=== PATIENT | male | born 1975 | race Caucasian/White ===

== ENCOUNTER 2020-07-09 09:04 | Emergency (ER) | payer BC ==
[2020-07-09 09:14] VITALS: BP 162/108; PULSE 81; RESP 18; TEMP 97.7
--- NOTE | 2020-07-09 10:06 | ED ---
Skin/Abscess/FB HPI - General Chief complaint: Skin/Abscess/Foreign Body Stated complaint: Rash Time Seen by Provider: 07/09/20 09:22 Source: patient Mode of arrival: ambulatory Limitations: no limitations - History of Present Illness Initial comments: 45-year-old male presenting to the emergency department today for chief complaint of rash in the bilateral ankles for over one year. Patient states he has had an itchy rash on the ankles for 1 year. He states that the right is worse than the left. Patient states is on the inner and outer aspects on the outer worsen the inner. Patient denies any drainage follow orders he denies fevers chills general malaise or worsening redness. Patient denies any pain with ambulating, he denies any decreased sensation tingling or numbness of the lower extremities. Patient denies any penile lesions involvement of the soles of the feet or the palms of the hands. Patient denies any oral involvement. Patient denies any specific exposures in that area. Patient is no additional complaints upon arrival patient appears well nontoxic distress--patient was presenting with his son for complaint and thought he would get it checked out to - Related Data Home Medications Medication Instructions Recorded Confirmed Ranitidine HCl 150 mg PO BID 05/29/15 06/05/15 Previous Rx's Medication Instructions Recorded HYDROcodone/APAP 7.5-325MG [[place] 1 tab PO Q6HR PRN #28 tab 06/05/15 7.5-325] amLODIPine BESYLATE [Norvasc] 5 mg PO DAILY #30 tab 06/06/15 Neomyc/Bacit/Polymyx/Hydrocort 1 applic TOPICAL BID 14 Days #30 gm 07/09/20 [Cortisporin Ointment] Allergies Allergy/AdvReac Type Severity Reaction Status Date / Time Penicillins Allergy Rash/Hives Verified 07/09/20 09:14 Review of Systems ROS Statement: Those systems with pertinent positive or pertinent negative responses have been documented in the HPI. ROS Other: All systems not noted in ROS Statement are negative. Past Medical History Past Medical History: Asthma, GERD/Reflux, Pulmonary Embolus (PE), Seizure Disorder Additional Past Medical History / Comment(s): gets stabbing pain left arm every time he eats, one time seizure 6 yrs. ago, hx of PE 7 yrs. ago, born w/ alcohol symdrome per pt., hiatal hernia History of Any Multi-Drug Resistant Organisms: None Reported Past Surgical History: Adenoidectomy, Tonsillectomy Additional Past Surgical History / Comment(s): nasal surg., recent EGD, 06-05-15 LAP CATRACHO FUNDLOPLICATION Past Anesthesia/Blood Transfusion Reactions: No Reported Reaction Additional Past Anesthesia/Blood Transfusion Reaction / Comment(s): pt. adopted, unknown family hx. Past Psychological History: No Psychological Hx Reported Smoking Status: Current every day smoker Past Alcohol Use History: Rare Past Drug Use History: Marijuana - Past Family History Mother Family Medical History: Unable to Obtain General Exam - General Exam Comments Initial Comments: General: The patient is awake and alert, in no distress, and does not appear acutely ill. Eye: +3 mm pupils are equal, round and reactive to light, extra-ocular movements are intact. No nystagmus. There is normal conjunctiva bilaterally. No signs of icterus. Ears, nose, mouth and throat: There are moist mucous membranes and no oral lesions. Neck: The neck is supple, there is no tenderness or JVD. Cardiovascular: There is a regular rate and rhythm. No murmur, rub or gallop is appreciated. Respiratory: Lungs are clear to auscultation, respirations are non-labored, breath sounds are equal. No wheezes, stridor, rales, or rhonchi. Gastrointestinal: Soft, non-distended, non-tender abdomen without masses or organomegaly noted. There is no rebound or guarding present. Musculoskeletal: Normal ROM, no tenderness. Strength 5/5. Sensation intact. Pulses equal bilaterally 2+. Neurological: A&O x 3. CN II-XII intact, There are no obvious motor or sensory deficits. Coordination appears grossly intact. Speech is normal. Skin: Skin is warm and dry.Rough erythematous lesion on inner and outer aspect of the ankles b/l. no soul involvement no other areas noted. Psychiatric: Cooperative, appropriate mood & affect, normal judgment. Limitations: no limitations Course Vital Signs 07/09/20 09:11 Temperature 97.7 F Pulse Rate 81 Respiratory 18 Rate Blood Pressure 162/108 O2 Sat by Pulse 95 Oximetry Medical Decision Making - Medical Decision Making rash appears to be a dermatitis. unsure etiology, cannot r/o venous insufficiency. great DP, and PT pulses. patient rash ongoing > 1year, recommend dermatology f/u and pcp f/u. patient agreeable. pt discharged appearing well. Disposition Clinical Impression: Dermatitis Disposition: HOME SELF-CARE Condition: Good Instructions (If sedation given, give patient instructions): Dermatitis (ED) Additional Instructions: Please use medication as discussed. Please follow-up with family doctor in the next 2 days, dermatology in next week. Please return to emergency room if the symptoms increase or worsen or for any other concerns. Prescriptions: Neomyc/Bacit/Polymyx/Hydrocort [Cortisporin Ointment] 1 applic TOPICAL BID 14 Days #30 gm Is patient prescribed a controlled substance at d/c from ED?: No Referrals: None,Stated [Primary Care Provider] - 1-2 days Gerber Charlton MD [STAFF PHYSICIAN] - 1-2 days Oz Charlton MD [STAFF PHYSICIAN] - 1-2 days Time of Disposition: 10:06
== END 2020-07-09 10:17 | disposition home or self-care (01) ==
LOC: EC 09:04
DX: L30.9 Dermatitis, unspecified (principal); F17.200 Nicotine dependence, unspecified, uncomplicated; K21.9 Gastro-esophageal reflux disease without esophagitis; Z79.899 Other long term (current) drug therapy; Z88.0 Allergy status to penicillin; Z86.711 Personal history of pulmonary embolism
CPT/HCPCS: 99282

== ENCOUNTER 2021-02-20 05:04 | Emergency (ER) | payer BC ==
[2021-02-20 05:11] VITALS: BP 152/89; PULSE 87; RESP 20; TEMP 98
--- NOTE | 2021-02-20 05:21 | ED ---
Lower Extremity Injury HPI - General Chief Complaint: Extremity Injury, Lower Stated Complaint: Left Knee Injury Time Seen by Provider: 02/20/21 05:07 Source: patient, RN notes reviewed, old records reviewed Mode of arrival: ambulatory Limitations: no limitations - History of Present Illness Initial Comments: This is a 45-year-old male to the emergency department today. Patient complains of significant left knee pain swelling. Symptoms occurred during twisting of left knee. This happened about a week ago symptoms have been persistent. Patient has no other trauma noted. No fevers, decreased range of motion secondary to pain and swelling. MD Complaint: knee injury -: days(s) Injury: Knee: Left Type of Injury: inversion, eversion Place: home Severity: moderate Severity scale (1-10): 7 Improves With: nothing Worsens With: weight bearing Context: direct blow, running Associated Symptoms: swelling Treatments Prior to Arrival: other (none) - Related Data Home Medications Medication Instructions Recorded Confirmed Ranitidine HCl 150 mg PO BID 05/29/15 06/05/15 Previous Rx's Medication Instructions Recorded HYDROcodone/APAP 7.5-325MG [[place] 1 tab PO Q6HR PRN #28 tab 06/05/15 7.5-325] amLODIPine BESYLATE [Norvasc] 5 mg PO DAILY #30 tab 06/06/15 Neomyc/Bacit/Polymyx/Hydrocort 1 applic TOPICAL BID 14 Days #30 gm 07/09/20 [Cortisporin Ointment] Allergies Allergy/AdvReac Type Severity Reaction Status Date / Time Penicillins Allergy Rash/Hives Verified 02/20/21 05:11 Review of Systems ROS Statement: Those systems with pertinent positive or pertinent negative responses have been documented in the HPI. ROS Other: All systems not noted in ROS Statement are negative. Past Medical History Past Medical History: Asthma, GERD/Reflux, Pulmonary Embolus (PE), Seizure Disorder Additional Past Medical History / Comment(s): gets stabbing pain left arm every time he eats, one time seizure 6 yrs. ago, hx of PE 7 yrs. ago, born w/ alcohol symdrome per pt., hiatal hernia History of Any Multi-Drug Resistant Organisms: None Reported Past Surgical History: Adenoidectomy, Tonsillectomy Additional Past Surgical History / Comment(s): nasal surg., recent EGD, 06-05-15 LAP CATRACHO FUNDLOPLICATION Past Anesthesia/Blood Transfusion Reactions: No Reported Reaction Additional Past Anesthesia/Blood Transfusion Reaction / Comment(s): pt. adopted, unknown family hx. Past Psychological History: No Psychological Hx Reported Smoking Status: Current every day smoker Past Alcohol Use History: Rare Past Drug Use History: Marijuana - Past Family History Mother Family Medical History: Unable to Obtain General Exam Limitations: no limitations General appearance: alert, in no apparent distress Head exam: Present: atraumatic, normocephalic, normal inspection Eye exam: Present: normal appearance, PERRL, EOMI. Absent: scleral icterus, conjunctival injection, periorbital swelling ENT exam: Present: normal exam, mucous membranes moist Neck exam: Present: normal inspection. Absent: tenderness, meningismus, lymphadenopathy Respiratory exam: Present: normal lung sounds bilaterally. Absent: respiratory distress, wheezes, rales, rhonchi, stridor Cardiovascular Exam: Present: regular rate, normal rhythm, normal heart sounds. Absent: systolic murmur, diastolic murmur, rubs, gallop, clicks GI/Abdominal exam: Present: soft, normal bowel sounds. Absent: distended, tenderness, guarding, rebound, rigid Extremities exam: Present: normal inspection, tenderness (Right knee tenderness and swelling), normal capillary refill. Absent: full ROM, pedal edema, joint swelling, calf tenderness Back exam: Present: normal inspection Neurological exam: Present: alert, oriented X3, CN II-XII intact Psychiatric exam: Present: normal affect, normal mood Skin exam: Present: warm, dry, intact, normal color. Absent: rash Course Vital Signs 02/20/21 05:09 Temperature 98.0 F Pulse Rate 87 Respiratory 20 Rate Blood Pressure 152/89 O2 Sat by Pulse 97 Oximetry - Reevaluation(s) Reevaluation #1: Medical record is reviewed Patient symptoms are improved here in the emergency department Patient is informed of results and questions are answered Medical Decision Making - Medical Decision Making 45 male with left knee effusion, patient has negative x-ray here in the ER, patient given supportive care advice for left knee effusion and can be discharged home - Radiology Data Radiology results: report reviewed (X-ray left knee is negative for significant acute disease), image reviewed Disposition Clinical Impression: Effusion, left knee Disposition: HOME SELF-CARE Condition: Good Instructions (If sedation given, give patient instructions): Swollen Knee Joint (ED) Is patient prescribed a controlled substance at d/c from ED?: No Referrals: Zak Conley MD [STAFF PHYSICIAN] - 1-2 days
[2021-02-20] MEDS ORDERED: Acetaminophen-Codeine 300-30mg TAB PO STA (05:39)
[2021-02-20] MEDS ORDERED: ACET/COD 300 MG/30 MG STARTER PACK 6 TAB BTL PO STA (05:39)
[2021-02-20] MEDS ORDERED: traMADol 50 MG STARTER PACK 3 TAB BTL PO STA (05:39)
[2021-02-20] MEDS ORDERED: ETODOLAC 400 MG TAB PO ONE (05:45)
--- NOTE | 2021-02-20 06:39 | XR ---
EXAMINATION TYPE: XR knee complete LT DATE OF EXAM: 02/20/2021 COMPARISON: NONE HISTORY: Knee pain TECHNIQUE: 3 views FINDINGS: There is no sign of fracture nor dislocation. Joint spaces are normal. There is no sign of focal bone destruction. There is small knee joint effusion. IMPRESSION: Small knee joint effusion. No fracture.
== END 2021-02-20 06:49 | disposition home or self-care (01) ==
LOC: EC 05:04
DX: M25.462 Effusion, left knee (principal); J45.909 Unspecified asthma, uncomplicated; K21.9 Gastro-esophageal reflux disease without esophagitis; F17.200 Nicotine dependence, unspecified, uncomplicated; F12.90 Cannabis use, unspecified, uncomplicated; Z88.0 Allergy status to penicillin; Z86.711 Personal history of pulmonary embolism; Z90.89 Acquired absence of other organs
CPT/HCPCS: 99283

== ENCOUNTER 2021-08-04 07:17 | Emergency (ER) | payer BC ==
[2021-08-04 15:01] LABS: Basophils # (A) 0.1 k/uL (0-0.2); Basophils % (A) 1 %; Eosinophils # (A) 0.6 k/uL (0-0.7); Eosinophils % (A) 9 %; Lymphocytes # (A) 1.4 k/uL (1.0-4.8); Lymphocytes % (A) 20 %; MCH 30.8 pg (25.0-35.0); MCHC 33.3 g/dL (31.0-37.0); MCV 92.6 fL (80.0-100.0); Mean Platelet Volume 7.9; Monocytes # (A) 0.7 k/uL (0-1.0); Monocytes % (A) 10 %; Neutrophils % (A) 57 %; Platelet Count 168 k/uL (150-450); RBC 4.86 m/uL (4.30-5.90); RDW 12.6 % (11.5-15.5)
[2021-08-04 15:13] LABS: INR 0.9 (<1.2); Partial Thromboplastin Time 23.4 sec (22.0-30.0)
--- NOTE | 2021-08-04 15:15 | XR ---
EXAMINATION TYPE: XR chest 2V DATE OF EXAM: 08/04/2021 COMPARISON: 07/25/2014 INDICATION: Chest pain TECHNIQUE: Single frontal view of the chest is obtained. FINDINGS: The heart size is normal. The pulmonary vasculature is normal. The lungs are clear. IMPRESSION: 1. No acute pulmonary process.
[2021-08-04 15:53] LABS: ALT 22 U/L (4-49); AST 23 U/L (17-59); African American GFR (CKD) >90 (>60 ml/min/1.73 sqM); Albumin 3.7 g/dL (3.5-5.0); Alkaline Phosphatase 48 U/L (38-126); Anion Gap 2 mmol/L; Blood Urea Nitrogen 18 mg/dL (9-20); Calcium 9.1 mg/dL (8.4-10.2); Carbon Dioxide 31 mmol/L (22-30); Chloride 106 mmol/L (98-107); Glucose 82 mg/dL (74-99); Non-African American GFR(CKD) >90 (>60 ml/min/1.73 sqM); Potassium 4.6 mmol/L (3.5-5.1); Sodium 139 mmol/L (137-145); Total Bilirubin 0.5 mg/dL (0.2-1.3); Total Protein 6.2 g/dL (6.3-8.2)
== END 2021-08-04 12:40 | disposition home or self-care (01) ==
LOC: EC 07:17
DX: M54.6 Pain in thoracic spine (principal)
CPT/HCPCS: 36415; 71046; 80053; 84484; 85025; 85379; 85610; 85730; 99283

== ENCOUNTER 2022-02-25 16:55 | Observation (INO) | payer BC ==
[2022-02-25] MEDS ORDERED: SODIUM CHLORIDE 0.9% 1,000 ML IV STA (19:48)
[2022-02-25] MEDS ORDERED: KETOROLAC 15 MG/ML 1 ML VIAL IVP STA (19:49)
--- NOTE | 2022-02-25 19:50 | ED ---
General Adult HPI <Jermain Gaviria - Last Filed: 02/25/22 22:52> - General Source: patient Mode of arrival: ambulatory Limitations: no limitations <Janice Jarrell - Last Filed: 03/01/22 23:17> - General Chief complaint: Nausea/Vomiting/Diarrhea Stated complaint: Weakness Time Seen by Provider: 02/25/22 19:30 - History of Present Illness Initial comments: 46-year-old male comes to the emergency department for symptoms of nausea, vomiting, chills and body aches. Symptoms started yesterday. Denies any sick contacts with similar symptoms. Reports that he had some nausea with abdominal pain last night however this improved. Today the patient has general myalgias with a low-grade fever. He admits to a mild nonproductive cough. No chest pain or shortness of breath. No changes in his bowel or bladder habits. No alleviating, precipitating or modifying factors (Janice Jarrell) - Related Data Previous Rx's Medication Instructions Recorded Cephalexin [Keflex] 500 mg PO Q8HR 7 Days #21 cap 02/26/22 Doxycycline [Vibramycin] 100 mg PO BID 7 Days #14 capsule 02/26/22 Naproxen [Naprosyn] 500 mg PO BID PRN #30 tablet 02/26/22 Pantoprazole [Protonix] 40 mg PO AC-BRKFST #15 tab 02/26/22 lisinopriL [Zestril] 2.5 mg PO DAILY #30 tab 02/26/22 traMADol HCL 50 mg PO Q8H 3 Days #9 tab 02/26/22 Allergies Allergy/AdvReac Type Severity Reaction Status Date / Time Penicillins Allergy Rash/Hives Verified 02/26/22 09:28 Review of Systems ROS Other: All systems not noted in ROS Statement are negative. <Jermain Gaviria - Last Filed: 02/25/22 22:52> ROS Other: All systems not noted in ROS Statement are negative. <Janice Jarrell - Last Filed: 03/01/22 23:17> ROS Statement: Those systems with pertinent positive or pertinent negative responses have been documented in the HPI. Past Medical History Past Medical History: Asthma, GERD/Reflux, Pulmonary Embolus (PE), Seizure Disorder Additional Past Medical History / Comment(s): gets stabbing pain left arm every time he eats, one time seizure 6 yrs. ago, hx of PE 7 yrs. ago, born w/ alcohol symdrome per pt., hiatal hernia History of Any Multi-Drug Resistant Organisms: None Reported Past Surgical History: Adenoidectomy, Tonsillectomy Additional Past Surgical History / Comment(s): nasal surg., recent EGD, 06-05-15 LAP CATRACHO FUNDLOPLICATION Past Anesthesia/Blood Transfusion Reactions: No Reported Reaction Additional Past Anesthesia/Blood Transfusion Reaction / Comment(s): pt. adopted, unknown family hx. Past Psychological History: No Psychological Hx Reported Smoking Status: Current every day smoker Past Alcohol Use History: Rare Past Drug Use History: Marijuana - Past Family History Mother Family Medical History: Unable to Obtain <Janice Jarrell - Last Filed: 03/01/22 23:17> General Exam Limitations: no limitations General appearance: alert, in no apparent distress Head exam: Present: atraumatic, normocephalic, normal inspection Eye exam: Present: normal appearance, PERRL, EOMI. Absent: scleral icterus, conjunctival injection, periorbital swelling ENT exam: Present: normal exam, mucous membranes moist Neck exam: Present: normal inspection. Absent: tenderness, meningismus, lymphadenopathy Respiratory exam: Present: normal lung sounds bilaterally. Absent: respiratory distress, wheezes, rales, rhonchi, stridor Cardiovascular Exam: Present: regular rate, normal rhythm, normal heart sounds. Absent: systolic murmur, diastolic murmur, rubs, gallop, clicks GI/Abdominal exam: Present: soft, normal bowel sounds. Absent: distended, tenderness, guarding, rebound, rigid Extremities exam: Present: full ROM, tenderness (to palpation of the left calf and madsen. redness and swelling in comparison to right leg. 2+ DP and PT pulses), normal capillary refill, pedal edema, calf tenderness. Absent: joint swelling Back exam: Present: normal inspection Neurological exam: Present: alert, oriented X3, CN II-XII intact Psychiatric exam: Present: normal affect, normal mood Skin exam: Present: warm, dry, intact, normal color. Absent: rash <Janice Jarrell - Last Filed: 03/01/22 23:17> Course <Jermain Gaviria - Last Filed: 02/25/22 22:52> Vital Signs 02/25/22 02/25/22 02/25/22 17:03 18:57 21:00 Temperature 100.2 F H 100.1 F H 98.7 F Pulse Rate 81 98 84 Respiratory 18 18 Rate Blood Pressure 117/61 131/83 127/77 O2 Sat by Pulse 95 97 98 Oximetry 02/26/22 02/26/22 01:00 02:39 Temperature 98.5 F Pulse Rate 73 83 Respiratory 16 Rate Blood Pressure 137/76 134/77 O2 Sat by Pulse 98 98 Oximetry - Reevaluation(s) Reevaluation #1: 02/25/22 22:52 Medical records reviewed (Jermain Gaviria) Reevaluation #2: 02/25/22 22:53 Symptoms improved with fever and pain control (Jermain Gaviria) Medical Decision Making - Lab Data Result diagrams: 02/25/22 20:00 02/25/22 20:00 - Radiology Data Radiology results: report reviewed (Ultrasound and x-ray left leg is negative for acute disease), image reviewed <Jermain Gaviria - Last Filed: 02/25/22 22:52> - Lab Data Result diagrams: 02/26/22 05:36 02/26/22 05:36 <Janice Jarrell - Last Filed: 03/01/22 23:17> - Medical Decision Making 46 male to be admitted for IV antibiotics, fever control pain management. (Jermain Gaviria) Upon arrival patient was placed into room 20. There are history of physical exam is performed. IV access established. Patient given a liter bolus normal saline. He is also given 50 mg of Toradol and a gram of Tylenol. Chest x-ray is performed which demonstrates no acute cardio pulmonary disease. Laboratory studies remarkable for white count of 21.7. Patient is given a dose of clindamycin for concern for left lower extremity cellulitis. He is pending ul trasound of the leg at this time. PATIENT WILL BE SIGNED OUT TO DR. Gaviria. (Janice Jarrell) - Lab Data Lab Results 02/25/22 02/25/22 02/25/22 Range/Units 17:06 20:00 20:00 WBC 21.7 H (3.8-10.6) k/uL RBC 5.04 (4.30-5.90) m/uL Hgb 15.6 (13.0-17.5) gm/dL Hct 45.6 (39.0-53.0) % MCV 90.6 (80.0-100.0) fL MCH 30.9 (25.0-35.0) pg MCHC 34.1 (31.0-37.0) g/dL RDW 13.2 (11.5-15.5) % Plt Count 167 (150-450) k/uL MPV 8.6 Neutrophils % 87 % Lymphocytes % 6 % Monocytes % 6 % Eosinophils % 0 % Basophils % 0 % Neutrophils # 18.9 H (1.3-7.7) k/uL Lymphocytes # 1.2 (1.0-4.8) k/uL Monocytes # 1.2 H (0-1.0) k/uL Eosinophils # 0.0 (0-0.7) k/uL Basophils # 0.1 (0-0.2) k/uL Sodium (137-145) mmol/L Potassium (3.5-5.1) mmol/L Chloride (98-107) mmol/L Carbon Dioxide (22-30) mmol/L Anion Gap mmol/L BUN (9-20) mg/dL Creatinine (0.66-1.25) mg/dL Est GFR (CKD-EPI)AfAm (>60 ml/min/1.73 sqM) Est GFR (CKD-EPI)NonAf (>60 ml/min/1.73 sqM) Glucose (74-99) mg/dL Plasma Lactic Acid Nate (0.7-2.0) mmol/L Calcium (8.4-10.2) mg/dL Total Bilirubin (0.2-1.3) mg/dL AST (17-59) U/L ALT (4-49) U/L Alkaline Phosphatase (38-126) U/L C-Reactive Protein (<1.0) mg/dL Total Protein (6.3-8.2) g/dL Albumin (3.5-5.0) g/dL Urine Color Urine Appearance (Clear) Urine pH (5.0-8.0) Ur Specific [place] (1.001-1.035) Urine Protein (Negative) Urine Glucose (UA) (Negative) Urine Ketones (Negative) Urine Blood (Negative) Urine Nitrite (Negative) Urine Bilirubin (Negative) Urine Urobilinogen (<2.0) mg/dL Ur Leukocyte Esterase (Negative) Urine RBC (0-5) /hpf Urine WBC (0-5) /hpf Urine Mucus (None) /hpf Coronavirus (PCR) Not Detected (Not Detectd) Heterophile Antibody Negative (Negative) Influenza Type A RNA (Not Detectd) Influenza Type B (PCR) (Not Detectd) 02/25/22 02/25/22 02/25/22 Range/Units 20:00 20:00 20:00 WBC (3.8-10.6) k/uL RBC (4.30-5.90) m/uL Hgb (13.0-17.5) gm/dL Hct (39.0-53.0) % MCV (80.0-100.0) fL MCH (25.0-35.0) pg MCHC (31.0-37.0) g/dL RDW (11.5-15.5) % Plt Count (150-450) k/uL MPV Neutrophils % % Lymphocytes % % Monocytes % % Eosinophils % % Basophils % % Neutrophils # (1.3-7.7) k/uL Lymphocytes # (1.0-4.8) k/uL Monocytes # (0-1.0) k/uL Eosinophils # (0-0.7) k/uL Basophils # (0-0.2) k/uL Sodium 136 L (137-145) mmol/L Potassium 4.1 (3.5-5.1) mmol/L Chloride 99 (98-107) mmol/L Carbon Dioxide 28 (22-30) mmol/L Anion Gap 9 mmol/L BUN 23 H (9-20) mg/dL Creatinine 0.97 (0.66-1.25) mg/dL Est GFR (CKD-EPI)AfAm >90 (>60 ml/min/1.73 sqM) Est GFR (CKD-EPI)NonAf >90 (>60 ml/min/1.73 sqM) Glucose 96 (74-99) mg/dL Plasma Lactic Acid Nate 1.5 (0.7-2.0) mmol/L Calcium 9.0 (8.4-10.2) mg/dL Total Bilirubin 0.7 (0.2-1.3) mg/dL AST 26 (17-59) U/L ALT 28 (4-49) U/L Alkaline Phosphatase 56 (38-126) U/L C-Reactive Protein 7.0 H (<1.0) mg/dL Total Protein 6.8 (6.3-8.2) g/dL Albumin 4.5 (3.5-5.0) g/dL Urine Color Urine Appearance (Clear) Urine pH (5.0-8.0) Ur Specific [place] (1.001-1.035) Urine Protein (Negative) Urine Glucose (UA) (Negative) Urine Ketones (Negative) Urine Blood (Negative) Urine Nitrite (Negative) Urine Bilirubin (Negative) Urine Urobilinogen (<2.0) mg/dL Ur Leukocyte Esterase (Negative) Urine RBC (0-5) /hpf Urine WBC (0-5) /hpf Urine Mucus (None) /hpf Coronavirus (PCR) (Not Detectd) Heterophile Antibody (Negative) Influenza Type A RNA Not Detected (Not Detectd) Influenza Type B (PCR) Not Detected (Not Detectd) 02/25/22 Range/Units 21:00 WBC (3.8-10.6) k/uL RBC (4.30-5.90) m/uL Hgb (13.0-17.5) gm/dL Hct (39.0-53.0) % MCV (80.0-100.0) fL MCH (25.0-35.0) pg MCHC (31.0-37.0) g/dL RDW (11.5-15.5) % Plt Count (150-450) k/uL MPV Neutrophils % % Lymphocytes % % Monocytes % % Eosinophils % % Basophils % % Neutrophils # (1.3-7.7) k/uL Lymphocytes # (1.0-4.8) k/uL Monocytes # (0-1.0) k/uL Eosinophils # (0-0.7) k/uL Basophils # (0-0.2) k/uL Sodium (137-145) mmol/L Potassium (3.5-5.1) mmol/L Chloride (98-107) mmol/L Carbon Dioxide (22-30) mmol/L Anion Gap mmol/L BUN (9-20) mg/dL Creatinine (0.66-1.25) mg/dL Est GFR (CKD-EPI)AfAm (>60 ml/min/1.73 sqM) Est GFR (CKD-EPI)NonAf (>60 ml/min/1.73 sqM) Glucose (74-99) mg/dL Plasma Lactic Acid Nate (0.7-2.0) mmol/L Calcium (8.4-10.2) mg/dL Total Bilirubin (0.2-1.3) mg/dL AST (17-59) U/L ALT (4-49) U/L Alkaline Phosphatase (38-126) U/L C-Reactive Protein (<1.0) mg/dL Total Protein (6.3-8.2) g/dL Albumin (3.5-5.0) g/dL Urine Color Yellow Urine Appearance Clear (Clear) Urine pH 6.5 (5.0-8.0) Ur Specific [place] 1.028 (1.001-1.035) Urine Protein 3+ H (Negative) Urine Glucose (UA) Negative (Negative) Urine Ketones Negative (Negative) Urine Blood Moderate H (Negative) Urine Nitrite Negative (Negative) Urine Bilirubin Negative (Negative) Urine Urobilinogen 2.0 (<2.0) mg/dL Ur Leukocyte Esterase Negative (Negative) Urine RBC 47 H (0-5) /hpf Urine WBC 2 (0-5) /hpf Urine Mucus Occasional H (None) /hpf Coronavirus (PCR) (Not Detectd) Heterophile Antibody (Negative) Influenza Type A RNA (Not Detectd) Influenza Type B (PCR) (Not Detectd) Disposition Is patient prescribed a controlled substance at d/c from ED?: No Time of Disposition: 22:55 <Jermain Gaviria - Last Filed: 02/25/22 22:52> <Janice Jarrell - Last Filed: 03/01/22 23:17> Clinical Impression: Dehydration, Fever, Cellulitis, Leukocytosis Disposition: ADMITTED IP TO THIS HOSP Condition: Good
[2022-02-25] MEDS ORDERED: ACETAMINOPHEN TAB 500 MG TAB PO STA (19:52)
[2022-02-25 20:51] LABS: ALT 28 U/L (4-49); AST 26 U/L (17-59); African American GFR (CKD) >90 (>60 ml/min/1.73 sqM); Albumin 4.5 g/dL (3.5-5.0); Alkaline Phosphatase 56 U/L (38-126); Anion Gap 9 mmol/L; Blood Urea Nitrogen 23 mg/dL (9-20); Carbon Dioxide 28 mmol/L (22-30); Chloride 99 mmol/L (98-107); Glucose 96 mg/dL (74-99); Non-African American GFR(CKD) >90 (>60 ml/min/1.73 sqM); Potassium 4.1 mmol/L (3.5-5.1); Sodium 136 mmol/L (137-145); Total Bilirubin 0.7 mg/dL (0.2-1.3); Total Protein 6.8 g/dL (6.3-8.2)
[2022-02-25 21:07] LABS: Basophils # (A) 0.1 k/uL (0-0.2); Basophils % (A) 0 %; Eosinophils % (A) 0 %; HCT 45.6 % (39.0-53.0); HGB 15.6 gm/dL (13.0-17.5); Lymphocytes # (A) 1.2 k/uL (1.0-4.8); Lymphocytes % (A) 6 %; MCH 30.9 pg (25.0-35.0); MCHC 34.1 g/dL (31.0-37.0); MCV 90.6 fL (80.0-100.0); Mean Platelet Volume 8.6; Monocytes # (A) 1.2 k/uL (0-1.0); Monocytes % (A) 6 %; Neutrophils # (A) 18.9 k/uL (1.3-7.7); Neutrophils % (A) 87 %; Platelet Count 167 k/uL (150-450); RBC 5.04 m/uL (4.30-5.90); RDW 13.2 % (11.5-15.5); WBC 21.7 k/uL (3.8-10.6)
[2022-02-25 21:10] LABS: Appearance,Urine Clear (Clear); Bilirubin,Urine Negative (Negative); Blood,Urine Moderate (Negative); Color,Urine Yellow; Glucose,Urine (UA) Negative (Negative); Ketones,Urine Negative (Negative); Leukocyte Esterase,Urine Negative (Negative); Mucus,Urine Occasional /hpf; Nitrite,Urine Negative (Negative); PH, Urine 6.5 (5.0-8.0); Protein,Urine 3+ (Negative); RBC,Urine 47 /hpf (0-5); Specific Gravity,Urine 1.028 (1.001-1.035); WBC,Urine 2 /hpf (0-5)
[2022-02-25] MEDS ORDERED: CLINDAMYCIN 600 MG/50 ML-D5W 600 MG in DEXTROSE/WATER 1 50ML.BAG IVPB STA (21:17)
--- NOTE | 2022-02-25 21:31 | XR ---
EXAMINATION TYPE: XR chest 2V DATE OF EXAM: 02/25/2022 9:12 PM COMPARISON: Chest radiographs from 08/04/2021 TECHNIQUE: XR chest 2V Frontal and lateral views of the chest. CLINICAL INDICATION:Male, 46 years old with history of fever; FINDINGS: Lungs/Pleura: There is no evidence of pleural effusion, focal consolidation, or pneumothorax. Pulmonary vascularity: Unremarkable. Heart/mediastinum: Cardiomediastinal silhouette is unremarkable. Musculoskeletal: No acute osseous pathology. IMPRESSION: No acute cardiopulmonary disease/process.
--- NOTE | 2022-02-25 22:08 | US ---
EXAMINATION TYPE: US venous doppler duplex LE LT DATE OF EXAM: 02/25/2022 9:11 PM COMPARISON: NONE CLINICAL HISTORY: left leg swelling, pain. Left calf swelling SIDE PERFORMED: Left TECHNIQUE: The lower extremity deep venous system is examined utilizing real time linear array sonog korey with graded compression, doppler sonography and color-flow sonography. VESSELS IMAGED: Common Femoral Vein Deep Femoral Vein Greater Saphenous Vein * Femoral Vein Popliteal Vein Small Saphenous Vein * Proximal Calf Veins (* superficial vessels) Left Leg: Negative for DVT Grayscale, color doppler, spectral doppler imaging performed of the deep veins of the lower extremiti es. There is normal flow, compressibility, vascular waveforms. IMPRESSION: No evidence for deep vein thrombosis of the left lower extremity.
--- NOTE | 2022-02-25 22:42 | XR ---
EXAMINATION TYPE: XR tibia fibula LT DATE OF EXAM: 02/25/2022 COMPARISON: NONE HISTORY: Pain and swelling TECHNIQUE: 4 views FINDINGS: There is small plantar and Achilles calcaneal spurring. The tibia and fibula appear intact. Ankle joint is anatomic. Knee joint appears intact. No sign of knee joint effusion. IMPRESSION: Negative left tibia and fibula exam. Mild calcaneal spurring.
[2022-02-25] MEDS ORDERED: MORPHINE SULFATE 4 MG/ML SYRINGE IV PRN (22:49)
[2022-02-25] MEDS ORDERED: NALOXONE 0.4 MG/ML 1 ML VIAL IV PRN (22:49)
[2022-02-25] MEDS ORDERED: VANCOMYCIN IV PER PHARMACY 1 EACH MISC MISCELLANE PRN (22:49)
[2022-02-25] MEDS ORDERED: VANCOMYCIN 1,750 MG in SODIUM CHLORIDE 0.9% 500 ML 500 ML IVPB ONE (23:00)
[2022-02-26 05:50] LABS: Basophils % (A) 0 %; Eosinophils # (A) 0.1 k/uL (0-0.7); Eosinophils % (A) 1 %; HCT 42.8 % (39.0-53.0); HGB 14.9 gm/dL (13.0-17.5); Lymphocytes # (A) 0.7 k/uL (1.0-4.8); Lymphocytes % (A) 5 %; MCH 31.4 pg (25.0-35.0); MCHC 34.8 g/dL (31.0-37.0); MCV 90.3 fL (80.0-100.0); Mean Platelet Volume 8.1; Monocytes # (A) 0.8 k/uL (0-1.0); Monocytes % (A) 6 %; Neutrophils # (A) 12.5 k/uL (1.3-7.7); Neutrophils % (A) 87 %; Platelet Count 154 k/uL (150-450); RBC 4.73 m/uL (4.30-5.90); RDW 12.8 % (11.5-15.5); WBC 14.4 k/uL (3.8-10.6)
[2022-02-26 06:07] LABS: ALT 27 U/L (4-49); AST 26 U/L (17-59); African American GFR (CKD) >90 (>60 ml/min/1.73 sqM); Albumin 3.7 g/dL (3.5-5.0); Alkaline Phosphatase 56 U/L (38-126); Anion Gap 6 mmol/L; Blood Urea Nitrogen 23 mg/dL (9-20); Calcium 8.1 mg/dL (8.4-10.2); Carbon Dioxide 27 mmol/L (22-30); Chloride 104 mmol/L (98-107); Glucose 118 mg/dL (74-99); Magnesium 1.8 mg/dL (1.6-2.3); Non-African American GFR(CKD) >90 (>60 ml/min/1.73 sqM); Phosphorus 3.1 mg/dL (2.5-4.5); Potassium 3.9 mmol/L (3.5-5.1); Sodium 137 mmol/L (137-145); Total Bilirubin 0.5 mg/dL (0.2-1.3); Total Protein 5.7 g/dL (6.3-8.2)
[2022-02-26] MEDS ORDERED: VANCOMYCIN 1,750 MG in SODIUM CHLORIDE 0.9% 500 ML 500 ML IVPB SCH (08:00)
[2022-02-26] MEDS ORDERED: ACETAMINOPHEN TAB 325 MG TAB PO PRN (09:58)
[2022-02-26] MEDS ORDERED: ONDANSETRON 4 MG/2 ML VIAL IVP PRN (09:59)
[2022-02-26] MEDS ORDERED: ENOXAPARIN 40 MG/0.4 ML SYRINGE SQ SCH (10:00)
[2022-02-26] MEDS ORDERED: PANTOPRAZOLE 40 MG TABLET PO SCH (10:00)
--- NOTE | 2022-02-26 13:36 | P.HPIM ---
History of Present Illness H&P Date: 02/26/22 This is a 46 year old male who follows with has no primary care provider. Only reported medical history is grand mal seizure last year not on any antiseizure medication patient states this was an isolated incident and also history of pulmonary embolism in his left lung over 10 years ago. He also reports nonhealing wound to his left inner ankle that he followed with dermatology for requiring steroid injections for healing. Area was stable and healing until about 2 weeks ago when it started to bother him again and he has been chronically scratching at area and there is some irritation and abrasion there from itching. He now presents with 2 day history of redness and swelling to left lower extremity. He reports significant pain and discomfort causing difficulty in ambulation. he describes burning type pain and has been unable to ambulate and work. He is a 2 to 2.5 pack per day smoker, reports frequent migraines and takes up to 10 plus motrin tablets per day for this sometimes. He denies history of diabetes, hypertension, no heart history. He denies alcohol use. Works in a factory type setting, resides with significant other who is at bedside. He denies fever, but reports body aches, chills and nausea also. He has white count of 21.7 on admission with elevated CRP at 1.5. He is admitted to observation and started on IV antibiotics in the form of ceftriaxone and vancomycin. Tib/Fib x ray negative for acute changes. Venous doppler performed negative for DVT. Infectious disease has been consulted for further evaluation and management. REVIEW OF SYSTEMS: CONSTITUTIONAL: Reports mild low grade fever, chills and body aches HEENT: No recent visual problems or hearing problems. Denied any sore throat. CARDIOVASCULAR: No chest pain, orthopnea, PND, no palpitations, no syncope. PULMONARY: No shortness of breath, no cough, no hemoptysis. GASTROINTESTINAL: No diarrhea, no nausea, no vomiting, no abdominal pain. NEUROLOGICAL: No headaches, no weakness, no numbness. HEMATOLOGICAL: Denies any bleeding or petechiae. GENITOURINARY: Denies any burning micturition, frequency, or urgency. MUSCULOSKELETAL/RHEUMATOLOGICAL: Reports redness pain and swelling to left lower extremity ENDOCRINE: Denies any polyuria or polydipsia. The rest of the 14-point review of systems is negative. PHYSICAL EXAMINATION: GENERAL: The patient is alert and oriented x3, not in any acute distress. Well developed, well nourished. HEENT: Pupils are round and equally reacting to light. EOMI. No scleral icterus. No conjunctival pallor. Normocephalic, atraumatic. No pharyngeal erythema. No th yromegaly. Poor dentitition CARDIOVASCULAR: S1 and S2 present. No murmurs, rubs, or gallops. PULMONARY: Chest is clear to auscultation, no wheezing or crackles. ABDOMEN: Soft, nontender, nondistended, normoactive bowel sounds. No palpable organomegaly. MUSCULOSKELETAL: No joint swelling or deformity. EXTREMITIES: No cyanosis, clubbing, or pedal edema. NEUROLOGICAL: Gross neurological examination did not reveal any focal deficits. SKIN: Localized erythema and swelling to left lower extremity extending from ankle to knee. Assessment and Plan Assessment Left lower extremity cellulitis with possible sepsis Leukocytosis secondary to above History migraines History seizure 6 years ago, one episode not currently on antiseizure medication History of pulmonary embolism 10 years ago History asthma not in acute exacerbation Gastroesophageal reflux disease Hiatal hernia post lap fanta in 2016 Daily smoker over 2 packs per day History THC use Obesity GI Prophylaxis DVT Prophylaxis Full Code Plan Continue patient on antibiotic coverage Consult infectious disease Counseled extensively on smoking cessation currently denying nicotine patch Patient will need to follow up with primary care on discharge Pending ID evaluation and possible discharge in the next 24 hours The impression and plan of care has been dictated by Bety Escalera, Nurse Practitioner as directed. Dr. Adis MD I have performed a history and physical examination and medical decision making of this patient, discussed the same with the dictator, and agree with the dictators assessment and plan as written, documented as a scribe. Based on total visit time, I have performed more than 50% of this visit. Past Medical History Past Medical History: Asthma, GERD/Reflux, Pulmonary Embolus (PE), Seizure Disorder Additional Past Medical History / Comment(s): gets stabbing pain left arm every time he eats, one time seizure 6 yrs. ago, hx of PE 7 yrs. ago, born w/ alcohol symdrome per pt., hiatal hernia History of Any Multi-Drug Resistant Organisms: None Reported Past Surgical History: Adenoidectomy, Tonsillectomy Additional Past Surgical History / Comment(s): nasal surg., recent EGD, 06-05-15 LAP FANTA FUNDLOPLICATION Past Anesthesia/Blood Transfusion Reactions: No Reported Reaction Additional Past Anesthesia/Blood Transfusion Reaction / Comment(s): pt. adopted, unknown family hx. Past Psychological History: No Psychological Hx Reported Additional Psychological History / Comment(s): PT IS INDEPENDANT, LIVES WITH , HAS 1 INDOOR DOG. NO SERVICE AND WORKS A [employer] . Smoking Status: Current every day smoker Past Alcohol Use History: Rare Additional Past Alcohol Use History / Comment(s): down to <ppd, has smoked since teens Past Drug Use History: Marijuana Additional Drug Use History / Comment(s): QUIT MARIJUANA 2009 - Past Family History Mother Family Medical History: Unable to Obtain Medications and Allergies Home Medications Medication Instructions Recorded Confirmed Type No Known Home Medications 02/26/22 02/26/22 History Allergies Allergy/AdvReac Type Severity Reaction Status Date / Time Penicillins Allergy Rash/Hives Verified 02/26/22 09:28 Physical Exam Vitals: Vital Signs Temp Pulse Pulse Resp BP BP Pulse Ox 02/26/22 07:58 98.2 F 110 H 19 157/83 91 L 02/26/22 03:38 98.1 F 91 18 155/87 95 02/26/22 02:39 98.5 F 83 16 134/77 98 02/26/22 01:00 73 137/76 98 02/25/22 21:00 98.7 F 84 127/77 98 02/25/22 18:57 100.1 F H 98 18 131/83 97 02/25/22 17:03 100.2 F H 81 18 117/61 95 Intake and Output 02/25/22 02/26/22 02/26/22 22:59 06:59 14:59 Other: Voiding Method Toilet # Voids 0 Weight 108.862 kg 108.862 kg Results CBC & Chem 7: 02/26/22 05:36 02/26/22 05:36 Labs: Abnormal Lab Results - Last 24 Hours (Table) 02/25/22 02/25/22 02/25/22 Range/Units 20:00 20:00 21:00 WBC 21.7 H (3.8-10.6) k/uL Neutrophils # 18.9 H (1.3-7.7) k/uL Lymphocytes # (1.0-4.8) k/uL Monocytes # 1.2 H (0-1.0) k/uL Sodium 136 L (137-145) mmol/L BUN 23 H (9-20) mg/dL Glucose (74-99) mg/dL Calcium (8.4-10.2) mg/dL C-Reactive Protein 7.0 H (<1.0) mg/dL Total Protein (6.3-8.2) g/dL Urine Protein 3+ H (Negative) Urine Blood Moderate H (Negative) Urine RBC 47 H (0-5) /hpf Urine Mucus Occasional H (None) /hpf 02/26/22 02/26/22 Range/Units 05:36 05:36 WBC 14.4 H (3.8-10.6) k/uL Neutrophils # 12.5 H (1.3-7.7) k/uL Lymphocytes # 0.7 L (1.0-4.8) k/uL Monocytes # (0-1.0) k/uL Sodium (137-145) mmol/L BUN 23 H (9-20) mg/dL Glucose 118 H (74-99) mg/dL Calcium 8.1 L (8.4-10.2) mg/dL C-Reactive Protein (<1.0) mg/dL Total Protein 5.7 L (6.3-8.2) g/dL Urine Protein (Negative) Urine Blood (Negative) Urine RBC (0-5) /hpf Urine Mucus (None) /hpf Assessment and Plan Time with Patient: Less than 30
[2022-02-26 14:18] VITALS: BP 132/77; PULSE 81; RESP 16; TEMP 98
--- NOTE | 2022-02-26 23:04 | P.DS ---
Providers Date of admission: 02/25/22 22:52 Attending physician: France Alvarado Consults: 02/26/22 12:04 Consult Physician Routine Consulting Provider: Rafaela Anaya Consult Reason/Comments: Left lower extremity cellulitus Do you want consulting provider notified?: Yes Primary care physician: Stated None Hospital Course: Final Diagnosis Left lower extremity cellulitis, sepsis ruled out Leukocytosis secondary to above, improving Hematuria recommend outpatient follow up History migraines History seizure 6 years ago, one episode not currently on antiseizure medication History of pulmonary embolism 10 years ago History asthma not in acute exacerbation Gastroesophageal reflux disease Hiatal hernia post lap fanta in 2016 Daily smoker over 2 packs per day counseled extensively on importance of smoking cessation History THC use Obesity GI Prophylaxis DVT Prophylaxis Full Code Discharge disposition Patient is stable for discharge home. Recommend to continue on oral antibiotics for 7 days in the form of doxycycline 100 mg po bid and keflex po 500 mg TID. Patient currently does not have family doctor, recommend he establish care with primary provider. Patient has been referred to Dr. Williamson on discharge. Additionally, blood pressure mildly elevated and patient stared on low dose lisinopril 2.5 mg po daily. Repeat labs in 2 to 3 days. Patient will need follow up urinalysis on discharge as well. Hospital Course This is a 46 year old male who presents with 2 day history of lower extremity pain redness and swelling. Doppler negative for DVT, Tib Fib fracture negative. He presents with left lower extremity cellulitis and started on combination of IV ceftriaxone and IV vancomycin. He has history of 2 plus pack per day smoker, asthma, PE 10 years ago, grand mal seizure one episode 6 years ago not on antiseizure medication currently, hiatal hernia s/p lap fanta in 2016, migraines. He does have leukocytosis of 21.7 on admission which has improved to 14.4. BUN 23, creatinine 0.98. CRP elevated at 7.0. Urine showing moderate blood, 3+ protein. Blood cultures are taken and negative so far. He remains afebrile, heart rate 81, blood pressure 132/77, 94% room air. Patient would like to be discharged home on oral antibiotics. Denies fever, chills have improved, no shortness of breath, no chest pain. Lungs are clear, S1 S2 auscultated. Has localized erythema to left lower extremity, patient reports improvement with IV antibiotics. Recommendations as above. Please see medication H and P for additional information. Please see medication reconciliation for a list of current medication. Thank you for allowing us to participate in the care of this patient. The impression and plan of care has been dictated by Bety Escalera, Nurse Practitioner as directed. Dr. Adis MD I have performed a history and physical examination and medical decision making of this patient, discussed the same with the dictator, and agree with the dictators assessment and plan as written, documented as a scribe. Based on total visit time, I have performed more than 50% of this visit. Patient Condition at Discharge: Good Plan - Discharge Summary New Discharge Prescriptions: New Cephalexin [Keflex] 500 mg PO Q8HR 7 Days #21 cap Pantoprazole [Protonix] 40 mg PO AC-BRKFST #15 tab Doxycycline [Vibramycin] 100 mg PO BID 7 Days #14 capsule traMADol HCL 50 mg PO Q8H 3 Days #9 tab lisinopriL [Zestril] 2.5 mg PO DAILY #30 tab Naproxen [Naprosyn] 500 mg PO BID PRN #30 tablet PRN Reason: Pain Discharge Medication List Cephalexin [Keflex] 500 mg PO Q8HR 7 Days #21 cap 02/26/22 [Rx] Doxycycline [Vibramycin] 100 mg PO BID 7 Days #14 capsule 02/26/22 [Rx] Naproxen [Naprosyn] 500 mg PO BID PRN #30 tablet 02/26/22 [Rx] Pantoprazole [Protonix] 40 mg PO AC-BRKFST #15 tab 02/26/22 [Rx] lisinopriL [Zestril] 2.5 mg PO DAILY #30 tab 02/26/22 [Rx] traMADol HCL 50 mg PO Q8H 3 Days #9 tab 02/26/22 [Rx] Follow up Appointment(s)/Referral(s): Alvin Williamson MD [STAFF PHYSICIAN] - 1-2 Days None,Stated [Primary Care Provider] - 1-2 days Ambulatory/Diagnostic Orders: Complete Blood Count w/diff [LAB.AMB] Time Frame: 3 Days, Location: None Selected Patient Instructions/Handouts: Cephalexin (By mouth), Doxycycline (By mouth), Cellulitis (GEN) Activity/Diet/Wound Care/Special Instructions: Recommend total smoking cessation Establish care with primary care provider, Dr. Williamson has been recommended information provided on discharge instructions. Continue oral antibiotics for 7 days Started on lisinopril 2.5 mg po daily blood pressure borderline Repeat labs in 2 to 3 days Return to ER for worsening redness, pain or if fever develops Use naproxen twice a day as needed for pain - this is an NSAID avoid use of motrin while taking this medication Tramadol as needed for pain as well - this is a Narcotic limit use and avoid using while drinking alcohol, driving, or operating heavy machinery. Discharge Disposition: HOME SELF-CARE
[2022-02-27] MEDS ORDERED: VANCOMYCIN TROUGH DUE 1 EACH MISC MISCELLANE ONE (07:00)
== END 2022-02-26 16:30 | disposition home or self-care (01) ==
LOC: EC 16:55 → 6NMEDSUR 22:52
PROVIDERS: ADMIT Hospitalist; ATTEND Hospitalist
DX: L03.116 Cellulitis of left lower limb (principal); E86.0 Dehydration; R31.9 Hematuria, unspecified; J45.909 Unspecified asthma, uncomplicated; K21.9 Gastro-esophageal reflux disease without esophagitis; G40.909 Epilepsy, unspecified, not intractable, without status epilepticus; F17.200 Nicotine dependence, unspecified, uncomplicated; M77.32 Calcaneal spur, left foot; Z79.899 Other long term (current) drug therapy; Z88.0 Allergy status to penicillin; Z86.711 Personal history of pulmonary embolism; Z20.822 Contact with and (suspected) exposure to COVID-19
CPT/HCPCS: 96366 ×2; 96367; 96372; 96365; 96375; 99285; 36415; 80053 ×2; 83605; 83735; 84100; 85025 ×2; 86140; 86308; 81001; 87040; 87502; 87635; 73590; 71046; 93971; G0378 ×2; J3370 ×2; J0696; J1650; J1885

== ENCOUNTER → 2022-03-01 | Outpatient (CLI) | payer BC ==
[2022-03-01 17:00] LABS: Basophils # (A) 0.06 X 10*3/uL (0.00-0.10); Basophils % (A) 0.8 %; Eosinophils % (A) 9.4 %; HCT 47.3 % (39.6-50.0); HGB 15.7 g/dL (13.0-17.0); Immature Grans, Automated 0.4 %; Lymphocytes # (A) 1.35 X 10*3/uL (0.90-5.00); Lymphocytes % (A) 18.1 %; MCH 30.2 pg (27.0-32.0); MCHC 33.2 g/dL (32.0-37.0); Mean Platelet Volume 10.8 fL (9.5-12.2); Monocytes # (A) 0.81 X 10*3/uL (0.20-1.00); Monocytes % (A) 10.9 %; NRBC Per 100 WBC 0 /100 WBCS (0.0-0.0); Neutrophils # (A) 4.51 X 10*3/uL (1.80-7.70); Neutrophils % (A) 60.4 %; Platelet Count 246 X 10*3/uL (140-440); RDW 12.9 % (11.5-14.5); WBC 7.46 X 10*3/uL (4.50-10.00)
== END | disposition home or self-care (01) ==
LOC: LABMAIN 13:11
PROVIDERS: ATTEND Nurse Practitioner Family
DX: D72.829 Elevated white blood cell count, unspecified (principal); L03.90 Cellulitis, unspecified
CPT/HCPCS: 85025

== ENCOUNTER 2024-10-13 13:27 | Emergency (ER) | payer BC ==
[2024-10-13 13:45] VITALS: RESP 18
--- NOTE | 2024-10-13 14:14 | ED ---
Lower Extremity Injury HPI - General Chief Complaint: Extremity Injury, Lower Stated Complaint: Fall-R ankle injury Time Seen by Provider: 10/13/24 13:46 Source: patient, RN notes reviewed Mode of arrival: ambulatory Limitations: no limitations - History of Present Illness Initial Comments: This is a 49-year-old male who presents to the emergency department for a right ankle injury. Patient was walking in his backyard when he stepped in a hole and rolled his ankle. He has since had pain to the outside of the right ankle and difficulty ambulating. He is not taking anything for pain control. Denies sustaining any other injuries. MD Complaint: ankle injury - Related Data Previous Rx's Medication Instructions Recorded Cephalexin [Keflex] 500 mg PO Q8HR 7 Days #21 cap 02/26/22 Doxycycline [Vibramycin] 100 mg PO BID 7 Days #14 capsule 02/26/22 Naproxen [Naprosyn] 500 mg PO BID PRN #30 tablet 02/26/22 Pantoprazole [Protonix] 40 mg PO AC-BRKFST #15 tab 02/26/22 lisinopriL [Zestril] 2.5 mg PO DAILY #30 tab 02/26/22 traMADol HCL 50 mg PO Q8H 3 Days #9 tab 02/26/22 Ibuprofen [Motrin] 800 mg PO Q8H PRN #30 tab 10/13/24 Allergies Allergy/AdvReac Type Severity Reaction Status Date / Time Penicillins Allergy Rash/Hives Verified 10/13/24 13:45 Review of Systems ROS Statement: Those systems with pertinent positive or pertinent negative responses have been documented in the HPI. ROS Other: All systems not noted in ROS Statement are negative. Past Medical History Past Medical History: Asthma, GERD/Reflux, Pulmonary Embolus (PE), Seizure Disorder Additional Past Medical History / Comment(s): gets stabbing pain left arm every time he eats, one time seizure 6 yrs. ago, hx of PE 7 yrs. ago, born w/ alcohol symdrome per pt., hiatal hernia History of Any Multi-Drug Resistant Organisms: None Reported Past Surgical History: Adenoidectomy, Tonsillectomy Additional Past Surgical History / Comment(s): nasal surg., recent EGD, 06-05-15 LAP CATRACHO FUNDLOPLICATION Past Anesthesia/Blood Transfusion Reactions: No Reported Reaction Additional Past Anesthesia/Blood Transfusion Reaction / Comment(s): pt. adopted, unknown family hx. Past Psychological History: No Psychological Hx Reported Smoking Status: Current every day smoker Past Alcohol Use History: Rare Past Drug Use History: Marijuana - Past Family History Mother Family Medical History: Unable to Obtain General Exam Limitations: no limitations General appearance: alert, in no apparent distress Head exam: Present: atraumatic, normocephalic, normal inspection Respiratory exam: Present: normal lung sounds bilaterally. Absent: respiratory distress, wheezes, rales, rhonchi, stridor Cardiovascular Exam: Present: regular rate, normal rhythm Extremities exam: Present: other (Mild tenderness to palpation over the right lateral malleolus. Range of motion slightly limited by pain. 2+ DP and PT pulses) Neurological exam: Present: alert, oriented X3, CN II-XII intact Psychiatric exam: Present: normal affect, normal mood Skin exam: Present: warm, dry, intact, normal color. Absent: rash Course Vital Signs 10/13/24 13:40 Temperature 97.9 F Pulse Rate 99 Respiratory 18 Rate Blood Pressure 117/85 O2 Sat by Pulse 94 L Oximetry Procedures - Orthopedic Splinting/Casting Injury #1 Side: right Lower Extremity Injury Location: ankle Lower Extremity Immobilizer: posterior splint, Elie wrap, fiberglass cast Other Orthopedic Equipment: crutches Medical Decision Making - Medical Decision Making This is a 49-year-old male who presents to the emergency department for a right ankle injury. Was pt. sent in by a medical professional or institution? @ -No Did you speak to anyone other than the patient for history? @ -No Did you review nursing and triage notes? @ -Yes, and I agree, it is accurate with regards to the patient's symptoms. Were old charts reviewed? @ -No Differential Diagnosis? @ -Differential Musculoskeletal Muscular strain, contusion, ligament sprain, fracture, arthritis, septic art hritis, bursitis, cellulitis, muscle spasm, nerve compression, DVT, arterial occlusion, herpes zoster, electrolyte abnormality, tumor.... This is not meant to be in all inclusive list EKG interpreted by me (3pts min.)? @ -Not obtained X-rays interpreted by me (1pt min.)? @ -X-ray of the right foot and ankle obtained. My interpretation identifies a large amount of soft tissue swelling. CT interpreted by me (1pt min.)? @ -CT scan of the right lower leg obtained. My interpretation identifies no acute fractures. U/S interpreted by me (1pt. min.)? @ -Not obtained What testing was considered but not performed? (CT, X-rays, U/S, labs)? Why? @ -None What meds were considered but not given? Why? @ -None Did you discuss the management of the patient with other professionals? @ -No Did you reconcile home meds? @ -No Was smoking cessation discussed for >3mins.? @ -No Was critical care preformed (if so, how long)? @ -No Were there social determinants of health that impacted care today? How? (Homelessness, low income, unemployed, alcoholism, drug addiction, transportation, low edu. Level, literacy, decrease access to med. care, custodial, rehab)? @ -No Was there de-escalation of care discussed even if they declined? (Discuss DNR or withdrawal of care, Hospice)? @ -No What co-morbidities impacted this encounter? (DM, HTN, Smoking, COPD, CAD, Cancer, CVA, Hep., AIDS, mental health diagnosis, sleep apnea, morbid obesity)? @ -None Was patient admitted / discharged? @ -Discharged. X-ray of the right foot and ankle obtained demonstrating a suspected fracture of the distal fibula. There is extensive soft tissue swelling and they advised further evaluation with a CT scan. CT scan of the right lower extremity obtained. They advised that the findings on radiograph likely correlate to ligament calcifications from prior injury. No clear fracture is obviously identified. They did however note extensive soft tissue edema and they advised correlation for soft tissue injury. Findings reviewed with the patient. We also discussed that when swelling is extensive there are sometimes fractures that are not initially identifiable and may need repeat imaging in 10 to 14 days. Posterior splint was applied and he was given crutch es due to his difficulty with ambulation and these findings. Information for orthopedic follow-up provided as well. Ibuprofen prescribed. Also advised ice and elevation. Patient discharged home in stable condition. Case discussed with ED attending Dr. Jarrell. Return precautions reviewed in depth, the patient is instructed to return to the emergency department with any new, worsening, or concerning symptoms. Patient verbalized understanding. Undiagnosed new problem with uncertain prognosis? @ -None Drug Therapy requiring intensive monitoring for toxicity (Heparin, Nitro, Insulin, Cardizem)? @ -None Were any procedures done? @ -Right posterior splint application Diagnosis/symptom? @ -Right ankle sprain Acute, or Chronic, or Acute on Chronic? @ -Acute Uncomplicated (without systemic symptoms) or Complicated (systemic symptoms)? @ -Uncomplicated Side effects of treatment? @ -None Exacerbation, Progression, or Severe Exacerbation] @ -Not applicable Poses a threat to life or bodily function? @ -May limit his ability to ambulate for the meantime - Radiology Data Radiology results: report reviewed, image reviewed Disposition Clinical Impression: Right ankle sprain Disposition: HOME SELF-CARE Instructions (If sedation given, give patient instructions): Ankle Sprain (ED) Additional Instructions: Return to the emergency department with any new, worsening, or concerning symptoms. Alternate with ibuprofen and Tylenol as needed for pain relief. Elevate the leg and ice it. If symptoms do not improve in the next few days, follow-up with orthopedics as listed below. Follow up with your primary care provider in 1-2 days. Prescriptions: Ibuprofen [Motrin] 800 mg PO Q8H PRN #30 tab PRN Reason: Pain Is patient prescribed a controlled substance at d/c from ED?: No Referrals: Darvin Garcias MD [Primary Care Provider] - 1-2 days Peyman Cat MD [STAFF PHYSICIAN] - 1-2 days Time of Disposition: 15:49
--- NOTE | 2024-10-13 14:24 | XR ---
EXAMINATION TYPE: XR foot complete RT, XR ankle complete RT DATE OF EXAM: 10/13/2024 2:06 PM COMPARISON: None CLINICAL INDICATION: Male, 49 years old with history of Injury; PHH, pain TECHNIQUE: XR foot complete RT, XR ankle complete RT examined in the AP, oblique, and lateral project ions. FINDINGS: Cortical irregularity involving the distal fibula with extensive edema surrounding this region. No ad ditional fractures.. Multifocal degeneration changes throughout the joints of the foot with osteophy te formation and joint space narrowing. IMPRESSION: Suspected fracture of the distal fibula. Consider further evaluation with CT. There is extensive soft tissue swelling present. [facility], , 10/13/2024 2:22 PM
[2024-10-13] MEDS: ACETAMINOPHEN TAB 500 MG TAB PO STA (14:27)
[2024-10-13] MEDS: IBUPROFEN 800 MG TAB PO STA (14:27)
--- NOTE | 2024-10-13 15:37 | CT ---
EXAMINATION TYPE: CT lower leg RT wo con DATE OF EXAM: 10/13/2024 3:04 PM COMPARISON: . Extremity radiograph same day. CLINICAL INDICATION: Male, 49 years old with history of Fall, possible fibula fx on x-ray; PHH, Pt wa s walking in his backyard and rolled his ankle after walking in a hole. Pt has increase pain with wa lking. Very difficult to bare weight on it. TECHNIQUE: Axial images were obtained of the CT lower leg RT wo con, Additional coronal and sagittal reformatted images and soft tissue and bone window were obtained for review. 3-D reconstruction was c reated on a separate workstation. Contrast used: mL of , (None if empty) Oral contrast used: (None if empty) CT DLP: 276.1 mGycm, Automated exposure control for dose reduction was used. FINDINGS: Cortical irregularities on same day radiograph of the distal fibula arm actually well-corticated calc ifications in the expected location of the ligaments connecting to the fibula. There is extensive sof t tissue edema surrounding the leg and lower extremity are noted. A fibula is present. There is mild degeneration changes of the knee with joint space tearing osteophyte formation. Mild degeneration mary nges throughout the joints of the foot with joint space narrowing. IMPRESSION: Finding on radiograph correlates likely ligament calcifications from prior injury. No discrete fractu re in the fibula or other osseous structures visualized. Extensive soft tissue edema correlate for so ft tissue injury. [facility], , 10/13/2024 3:35 PM
[2024-10-13] MEDS: ACET/COD 300 MG/30 MG STARTER PACK 6 TAB BTL PO STA (15:54)
[2024-10-13 15:58] VITALS: BP 165/89; PULSE 75; TEMP 98.4
== END 2024-10-13 15:58 | disposition home or self-care (01) ==
LOC: EC 13:27
DX: S93.401A Sprain of unspecified ligament of right ankle, initial encounter (principal); F17.200 Nicotine dependence, unspecified, uncomplicated; Z88.0 Allergy status to penicillin; X50.1XXA Overexertion from prolonged static or awkward postures, initial encounter; Y93.01 Activity, walking, marching and hiking
CPT/HCPCS: 29515; 99284